=== PATIENT | female | born 1970 | race Caucasian/White ===

== ENCOUNTER → 2021-10-22 09:53 | Outpatient (BNVA) | payer MEDICAID, SELFPAY | PROVIDERS: Family Provider Family Medicine; PCP Nurse Practitioner Family; Visit Provider Nurse Practitioner Family | DX: I10 Essential (primary) hypertension (principal); K21.9 Gastro-esophageal reflux disease without esophagitis; R11.2 Nausea with vomiting, unspecified; R10.11 Right upper quadrant pain | CPT/HCPCS: 80053; 85025 ==

== ENCOUNTER → 2022-01-08 09:45 | Outpatient (BNVA) | payer BC, MEDICAID, SELFPAY | PROVIDERS: Family Provider Family Medicine; PCP Nurse Practitioner Family; Visit Provider Nurse Practitioner Family | DX: E78.5 Hyperlipidemia, unspecified (principal); R73.9 Hyperglycemia, unspecified; I10 Essential (primary) hypertension; Z68.33 Body mass index [BMI] 33.0-33.9, adult; J98.8 Other specified respiratory disorders | CPT/HCPCS: 80053; 80061; 83036; 84443; 85025 ==

== ENCOUNTER 2022-04-14 09:23 | Outpatient (CLI) | payer BC, MEDICAID, SELFPAY ==
--- NOTE | 2022-04-14 | US_ITS ---
WS: [id number] RIGHT UPPER QUADRANT ULTRASOUND HISTORY: R11.2 - Nausea with vomiting, unspecified COMPARISON: None available. Liver: 15.1 cm in length. Normal size liver. No bile duct dilatation or mass. Portal Vein: Normal hepatopetal flow with monophasic waveform. Gallbladder: Normally distended gallbladder with no stones or wall thickening. CBD: 0.4 cm Pancreas: Normal size and echogenicity. Right kidney: 9.8 cm in length. Normal size and echogenicity. No hydronephrosis or mass. Aorta and IVC: Unremarkable abdominal aorta and IVC. No ascites. US/US gall bladder [id number] IMPRESSION: Normal RIGHT upper quadrant ultrasound.
== END 2022-04-14 09:24 | disposition home or self-care (01) ==
LOC: RAD 09:24
PROVIDERS: PCP Nurse Practitioner Family; Visit Provider Nurse Practitioner Family
DX: R11.2 Nausea with vomiting, unspecified (principal)
CPT/HCPCS: 76705

== ENCOUNTER 2022-06-10 08:47 | Outpatient (CLI) | payer BC, MEDICAID, SELFPAY ==
--- NOTE | 2022-06-10 08:54 | MM_ITS ---
WS: [id number] BILATERAL SCREENING DIGITAL TOMOSYNTHESIS MAMMOGRAM WITH CAD HISTORY: Z12.39 - Encounter for other screening for malignant neoplasm... COMPARISON: None available. Bilateral CC and MLO views with tomosynthesis and synthetic mammography submitted. Computer aided det ection analyzed. Breast composition: The breasts are heterogeneously dense, which may obscure small masses. No suspici ous masses, microcalcifications or architectural distortion. Benign calcifications LEFT breast. MM/[place] [id number] IMPRESSION: BI-RADS: 2-Benign FOLLOW UP: 1 Year Follow-up
== END 2022-06-10 08:48 | disposition home or self-care (01) ==
LOC: RAD 08:49
PROVIDERS: PCP Nurse Practitioner Family; Visit Provider Nurse Practitioner Family
DX: Z12.31 Encounter for screening mammogram for malignant neoplasm of breast (principal)
CPT/HCPCS: 77063; 77067

== ENCOUNTER → 2022-06-19 09:08 | Outpatient (BNVA) | payer BC, MEDICAID, SELFPAY | PROVIDERS: PCP Nurse Practitioner Family; Visit Provider Nurse Practitioner Family | DX: E11.9 Type 2 diabetes mellitus without complications (principal); K21.9 Gastro-esophageal reflux disease without esophagitis; F41.9 Anxiety disorder, unspecified; F32.A Depression, unspecified; I10 Essential (primary) hypertension; E78.5 Hyperlipidemia, unspecified; F17.200 Nicotine dependence, unspecified, uncomplicated; J44.9 Chronic obstructive pulmonary disease, unspecified | CPT/HCPCS: 80053; 80061; 83036; 84443; 85025 ==

== ENCOUNTER → 2022-08-05 14:08 | Outpatient (BNVA) | payer BC, MEDICAID, SELFPAY | PROVIDERS: PCP Nurse Practitioner Family; Visit Provider Nurse Practitioner | DX: J02.9 Acute pharyngitis, unspecified (principal) | CPT/HCPCS: 87880 ==

== ENCOUNTER → 2022-10-21 14:59 | Outpatient (BNVA) | payer BC, MEDICAID, SELFPAY | PROVIDERS: PCP Nurse Practitioner Family; Visit Provider Nurse Practitioner Family | DX: E11.9 Type 2 diabetes mellitus without complications (principal) | CPT/HCPCS: 80053; 80061; 83036; 84443; 85025 ==

== ENCOUNTER → 2023-01-05 10:12 | Outpatient (BNVA) | payer BC, MEDICAID, SELFPAY | PROVIDERS: PCP Nurse Practitioner Family; Visit Provider Nurse Practitioner | DX: R50.9 Fever, unspecified (principal); Z20.822 Contact with and (suspected) exposure to COVID-19 | CPT/HCPCS: 87426 ==

== ENCOUNTER → 2023-01-15 10:34 | Outpatient (BNVA) | payer BC, MEDICAID, SELFPAY | PROVIDERS: PCP Nurse Practitioner Family; Visit Provider Nurse Practitioner Family | DX: Z12.11 Encounter for screening for malignant neoplasm of colon (principal); E11.9 Type 2 diabetes mellitus without complications; J44.9 Chronic obstructive pulmonary disease, unspecified; K21.9 Gastro-esophageal reflux disease without esophagitis; F41.9 Anxiety disorder, unspecified; F32.A Depression, unspecified; E78.5 Hyperlipidemia, unspecified; I10 Essential (primary) hypertension | CPT/HCPCS: 80053; 80061; 83036; 84443; 85025 ==

== ENCOUNTER → 2023-04-09 10:26 | Outpatient (BNVA) | payer BC, MEDICAID, SELFPAY | PROVIDERS: PCP Nurse Practitioner Family; Visit Provider Nurse Practitioner Family | DX: E11.9 Type 2 diabetes mellitus without complications (principal) | CPT/HCPCS: 80053; 80061; 83036; 84443; 85025 ==

== ENCOUNTER → 2023-06-17 13:51 | Outpatient (BNVA) | payer BC, MEDICAID, SELFPAY | PROVIDERS: PCP Nurse Practitioner Family; Visit Provider Nurse Practitioner Family | DX: R50.9 Fever, unspecified (principal) | CPT/HCPCS: 87071; 87426; 87880 ==

== ENCOUNTER → 2023-07-13 09:52 | Outpatient (BNVA) | payer BC, MEDICAID, SELFPAY | PROVIDERS: PCP Nurse Practitioner Family; Visit Provider Nurse Practitioner Family | DX: E11.9 Type 2 diabetes mellitus without complications (principal); I10 Essential (primary) hypertension | CPT/HCPCS: 80053; 80061; 83036; 84443; 85025 ==

== ENCOUNTER → 2024-03-14 11:55 | Outpatient (BNVA) | payer BC, MEDICAID, SELFPAY | PROVIDERS: PCP Nurse Practitioner Family; Visit Provider Nurse Practitioner Family | DX: I10 Essential (primary) hypertension (principal); E11.9 Type 2 diabetes mellitus without complications | CPT/HCPCS: 80053; 80061; 83036; 84443; 85025 ==

== ENCOUNTER → 2024-05-30 10:03 | Outpatient (BNVA) | payer BC, MEDICAID, SELFPAY | PROVIDERS: PCP Nurse Practitioner Family; Visit Provider Nurse Practitioner Family | DX: E11.9 Type 2 diabetes mellitus without complications (principal) | CPT/HCPCS: 80053; 80061; 83036; 84443; 85025 ==

== ENCOUNTER 2024-06-27 11:07 | Day surgery (SDC) | payer BC, MEDICAID, SELFPAY ==
[2024-06-27] VITALS (7 sets, daily range): BP systolic 106–145; BP diastolic 69–100; PULSE 64–88; RESP 16–18; TEMP 36.1–36.8; O2SAT 95–100; BMI 27.2
[2024-06-27] MEDS: sodium chloride 0.9% 1,000 ML 30 ML IV (11:27)
[2024-06-27 11:31] LABS: Glucose Point of Care 101 mg/dL (70-110)
[2024-06-27] MEDS: ipratropium-albuterol 3 mL Neb INHALATION (11:51)
--- NOTE | 2024-06-27 12:04 | ANES.PREANE2 ---
Pre-Anesthetic Assessment Height/Weight: Height 1.57 m Weight 67.585 kg Temp Pulse Resp BP Pulse Ox O2 Del Method 98.2 F 88 17 140/70 96 Room Air 06/27/24 11:21 06/27/24 11:58 06/27/24 11:50 06/27/24 11:21 06/27/24 11:50 06/27/24 11:50 Preop Diagnosis: screening Operation Date: 06/27/24 12:15 Proposed Procedures p EGD- 07635,G0121,64146,K21.9,Z12.11(Not Applicable) - Rodrick Ellis MD s Colonoscopy(Not Applicable) - Rodrick Ellis MD Familial anesthetic complications: none Was Beta Radha taken within 24 hours: N/A Was Clonidine taken within 24 hours: N/A Last intake: Intake Last Liquid Date 06/26/24 Last Liquid Time 20:45 Last Solid Date 06/25/24 Last Solid Time 19:00 Social Tobacco 5/6 per day Exam alert, oriented x 3, clear to auscultation bilaterally and regular rate & rhythm Airway Submandibular: within normal limits Cervical ROM: within normal limits Mallampati: Class II Dentition: false Comments: Comments: uppers History/ROS No significant history except as noted and No significant complaints Pulmonary Asthma and Chronic Obstructive Pulmonary Disease SOB with exersion CV/HEM Hypertension None reported Hepatic None reported GI Gastroesophageal Reflux Disease Metabolic Diabetes Mellitus [facility] None reported Neuropsych None reported Anesthetic Plan ASA status: 3 Anesthesia: MAC Risk of > 500 ml blood loss (7ml/kg in children): No Medications/Allergies Home Medications Medication Instructions Recorded Confirmed Last Taken Type nebulizer accessories #1 ea 07/13/23 06/23/24 Unknown Rx varenicline 1 mg tablet (Chantix 1 mg PO BID #56 tabs 11/13/23 06/27/24 06/25/24 Rx Continuing Month Box) compressor, for nebulizer #1 ea 02/23/24 06/23/24 Unknown Rx albuterol sulfate 2.5 mg/3 mL 2.5 mg (3 mL) inhalation Q4H PRN 05/30/24 06/27/24 Unknown Rx (0.083 %) solution for nebulization shortness of breath or wheezing #180 mL atorvastatin 80 mg tablet 80 mg PO DAILY #30 tabs 05/30/24 06/27/24 06/26/24 Rx budesonide-formoterol HFA 80 2 puff inhalation BID #10.2 grams 05/30/24 06/27/24 06/26/24 Rx mcg-4.5 mcg/actuation aerosol inhaler (Symbicort) lisinopril 40 mg tablet 40 mg PO DAILY #30 tabs 05/30/24 06/27/24 06/26/24 Rx pantoprazole 40 mg tablet,delayed 40 mg PO DAILY #30 tabs 05/30/24 06/27/24 06/26/24 Rx release (Protonix) albuterol sulfate 90 mcg/actuation 2 puff inhalation QID PRN 06/23/24 06/27/24 06/26/24 History aerosol inhaler Shortness Of Breath Or Wheezing budesonide 0.5 mg/2 mL suspension 0.5 mg inhalation BID PRN 06/23/24 06/27/24 Unknown History for nebulization (Pulmicort) Shortness Of Breath Or Wheezing triamcinolone acetonide 0.1 % 1 applic topical TID PRN Outbreak 06/23/24 06/27/24 06/23/24 History topical cream Allergies Allergy/AdvReac Type Severity Reaction Status Date / Time No Known Allergies Allergy Unverified 06/10/24 08:32 Current Medications Generic Name Dose Route Start Last Admin Trade Name Freq PRN Reason Stop Dose Admin Sodium Chloride 1,000 mls @ 30 mls/hr 06/27/24 11:15 06/27/24 11:27 Sodium Chloride 0.9% IV 06/28/24 11:14 30 mls/hr .Q24H JENNIFER Administration PFSH Anesthesia Medical History Right wrist tendonitis GERD (gastroesophageal reflux disease) Diabetes type 2, controlled Essential hypertension Hyperlipemia COPD (chronic obstructive pulmonary disease) Surgical History Hx of tubal ligation Family History (Updated 06/10/24 @ 08:35 by MARTINE Tran) Grandfather Cancer Diabetes Stroke Grandmother Clotting disorder Diabetes Hyperlipidemia Hypertension Sister Stroke Family/Other Colon cancer Uncle on father side Family/Other Colon cancer uncle on mother side Denies family history of Dementia Chronic kidney disease (CKD) Suicide Social History Smoking and tobacco/nicotine status: current every day tobacco/nicotine user Second hand smoke exposure: No Alcohol intake: unknown Substance/Drug Use: unknown Adopted: No Caregiver/support person: No Lives independently: Yes Household members: spouse Housing: House Marital status: service: No Current occupational status: employed Current occupation: [employer] Pets and animals: Yes Do you think of yourself as: Straight/Heterosexual Current gender identity: Female Data Anesthesia Cardiac Studies: No Data to Display
--- NOTE | 2024-06-27 12:24 | W.PM.OPSUD ---
Surgery/Procedure H&P Update DATE OF PROCEDURE: June 27, 2024 DATE H&P PERFORMED: 06/10/24 H&P UPDATE INFORMATION: I have reviewed H&P completed within last 30 days, I have examined patient prior to procedure and No changes to prior documentation PREOP DIAGNOSIS: screening PLANNED PROCEDURE: Operation Date: 06/27/24 12:15 Proposed Procedures p EGD- 93092,G0121,12839,K21.9,Z12.11(Not Applicable) - Rodrick Ellis MD s Colonoscopy(Not Applicable) - Rodrick Ellis MD
--- NOTE | 2024-06-27 13:35 | ANE.PACU2 ---
Inpatient post-anesthesia follow up: Airway intact: Yes Vital signs: Temperature 97.0 F Pulse Rate 86 Respiratory Rate 18 Blood Pressure 124/100 Pulse Oximetry 100 Oxygen Delivery Me thod Room Air Oxygen Flow Rate Fraction of Inspir ed Oxygen Hydration adequate: Yes Nausea and vomiting: No Pain level: 1 Mental status: Baseline
== END 2024-06-27 13:35 | disposition home or self-care (01) ==
PROVIDERS: PCP Nurse Practitioner Family; Visit Provider Student in an Organized Health Care Education/Training Program
PROC: 0DJ08ZZ Inspection of Upper Intestinal Tract, Via Natural or Artificial Opening Endoscopic (ICD-10-PCS; CPT 43235; principal; 2024-06-27 12:15)
PROC: 0DJD8ZZ Inspection of Lower Intestinal Tract, Via Natural or Artificial Opening Endoscopic (ICD-10-PCS; CPT 45378; 2024-06-27 12:15)
DX: Z12.11 Encounter for screening for malignant neoplasm of colon (principal); K21.9 Gastro-esophageal reflux disease without esophagitis; K57.30 Diverticulosis of large intestine without perforation or abscess without bleeding; K64.4 Residual hemorrhoidal skin tags; I10 Essential (primary) hypertension; E11.9 Type 2 diabetes mellitus without complications; E78.5 Hyperlipidemia, unspecified; J44.9 Chronic obstructive pulmonary disease, unspecified; F17.200 Nicotine dependence, unspecified, uncomplicated; K29.50 Unspecified chronic gastritis without bleeding
CPT/HCPCS: 36416; 43239; 45378; 82962; 88305; 88342; 94640; J2704; J7030

== ENCOUNTER → 2024-09-05 10:55 | Outpatient (BNVA) | payer BC, MEDICAID, SELFPAY | PROVIDERS: PCP Nurse Practitioner Family; Visit Provider Nurse Practitioner Family | DX: R05.9 Cough, unspecified (principal); R06.2 Wheezing; F17.200 Nicotine dependence, unspecified, uncomplicated; J44.1 Chronic obstructive pulmonary disease with (acute) exacerbation | CPT/HCPCS: 71046 ==

== ENCOUNTER → 2024-12-01 10:46 | Outpatient (BNVA) | payer BC, MEDICAID, SELFPAY | PROVIDERS: PCP Nurse Practitioner Family; Visit Provider Nurse Practitioner Family | DX: I10 Essential (primary) hypertension (principal); E11.9 Type 2 diabetes mellitus without complications; E78.5 Hyperlipidemia, unspecified; K21.9 Gastro-esophageal reflux disease without esophagitis; J44.9 Chronic obstructive pulmonary disease, unspecified; M79.672 Pain in left foot | CPT/HCPCS: 73630; 80053; 80061; 83036; 84443; 85025; 85651; 86140 ==

== ENCOUNTER → 2024-12-15 09:35 | Outpatient (BNVA) | payer BC, MEDICAID, SELFPAY | PROVIDERS: PCP Nurse Practitioner Family; Visit Provider Nurse Practitioner Family | DX: M25.50 Pain in unspecified joint (principal); R70.0 Elevated erythrocyte sedimentation rate; R79.82 Elevated C-reactive protein (CRP) | CPT/HCPCS: 86160; 86162; 86235; 86255; 86376; 86431 ==

== ENCOUNTER 2025-01-11 08:20 | Emergency (ER) | payer BC, MEDICAID, SELFPAY ==
[2025-01-11 08:39] VITALS: BP 119/72; PULSE 70; RESP 20; TEMP 36.8; O2SAT 100
--- NOTE | 2025-01-11 08:52 | US_ITS ---
WS: [id number] RIGHT UPPER QUADRANT ULTRASOUND HISTORY: pain RUQ COMPARISON: 04/14/2022 Liver: 17.6 cm in length. Normal size liver and echogenicity. No bile duct dilatation or mass. Portal Vein: Normal hepatopetal flow with monophasic waveform. Gallbladder: Normally distended gallbladder with no stones or wall thickening. CBD: 0.3 cm Pancreas: Limited visualization. Right kidney: 10.2 cm in length. Normal size and echogenicity. No hydronephrosis or mass. Aorta and IVC: Unremarkable abdominal aorta and IVC. No ascites. US/US abdomen limited [id number] IMPRESSION: Normal right upper quadrant ultrasound.
--- NOTE | 2025-01-11 08:52 | CT_ITS ---
WS: [id number] CT ANGIOGRAPHY chest, abdomen and pelvis, with and without contrast. HISTORY: Left-sided chest pain. TECHNIQUE: Precontrast imaging through the thorax. CT angiogram is performed during IV injection. Reformation images reviewed. All CT scans at [facility] use at least one of these dose optimization techniques: automated exposure control; mA and/or kV adjustment per patient size (includes targeted exams where dose is matched to clinical indication); or iterative reconstruction. CONTRAST: Omnipaque 350; 100 mL IV. DLP: 907.79 mGy.cm COMPARISON: None available. Chest: Mildly ectatic and dilated aorta. Ascending thoracic aorta 3.7 cm. Mild atherosclerotic plaque through the arch. Normal size descending aorta at the level of the elver, 2.3 cm. No dissection. No ulcerated plaque. Pulmonary arteries are also well opacified and there is no pulmonary embolism. Normal size heart. No RIGHT heart strain. No pericardial or pleural effusions. Lungs are hyperexpanded. Scattered micronodules throughout both lungs. No nodule greater than 3 mm. No endobronchial lesions. No mediastinal or hilar adenopathy. Small hiatal hernia. Abdominal aorta: Normal size abdominal aorta. Very mild atherosclerotic plaque. No aneurysm. No ulcerated plaque. Good enhancement of the mesenteric arteries. No thrombus or occlusion identified. Normal renal arteries with normal renal enhancement. KRAIG is patent. Mild atherosclerotic plaque continues into the common iliac arteries and femoral arteries. No aneurysms or occlusion. Arterial imaging through the abdomen and pelvis demonstrates tricuspid regurgitation into the hepatic veins. Size of the liver is mildly prominent. Gallbladder is negative. Normal pancreas and adrenal glands. No renal obstruction. No GI tract obstruction. Small hiatal hernia. No ascites or adenopathy. Urinary bladder is well distended. Uterus is present. No destructive bone lesions. CT/CT ang [facility] [id number] IMPRESSION: 1. No thoracic aortic dissection. 2. Mildly ectatic thoracic aorta with atherosclerotic plaque. No ulcerated arsh que. 3. Mild atherosclerosis abdominal aorta with no occlusions or thrombus. Mesent gregorio arteries are normally enhancing. 4. No ischemic changes in the GI tract. 5. No pulmonary embolism. 6. No ascites or adenopathy. 7. Numerous micronodules throughout both lungs. With history of smoking consid er 6-month chest CT follow-up.
--- NOTE | 2025-01-11 08:56 | ECG_ITS ---
[facility]25[facility]11 Pat Name: Nirmala Alfred Department: Room: Gender: Female Security Escort: : 1970 Requested By: Juan Mahajan Order Number: [id number] Reading MD: Measurements Intervals [place] Rate: 64 P: 70 LA: 173 QRS: 63 QRSD: 85 T: 39 QT: 375 QTc: 388 Interpretive Statements SINUS RHYTHM POSSIBLE LEFT ATRIAL ENLARGEMENT [-0.1mV P-WAVE IN V1/V2] [email or web address] [id number]
--- NOTE | 2025-01-11 08:58 | ED_ITS ---
HPI - Abdominal Pain 2 General: Chief Complaint: Abdominal Pain Stated Complaint: dizzy, pain that radiates to back and chest, weak Time Seen by Provider: 01/11/25 08:46 History of Present Illness: Chief complaint is abdominal pain and back pain. The patient states that she has been having some intermittent more mild episodes for quite some time maybe a year. She states that she had an episode on Thursday. She states then she had another episode that was worse this morning. Her pain is right upper quadrant. She states it wraps like a band around her back. She states it does radiate up a little bit into her chest substernal. No pleurisy. She states she has been dry heaving and feels dizzy. No change in vision. No concerning headache. No black or bloody stools or emesis. No fever. No shortness of breath. No pleurisy. No recent mobility or leg pain or swelling. Related Data Home Medications ?Medication ?Instructions ?Recorded ?Confirmed ibuprofen 200 mg tablet (Advil) 800 mg PO Q6H PRN Feve r Or Pain 01/11/25 01/11/25 Previous Rx's ?Medication ?Instructions ?Recorded nebulizer accessories #1 ea 07/13/23 compressor, for nebulizer #1 ea 02/23/24 albuterol sulfate 2.5 mg/3 mL 2.5 mg (3 mL) inhalation Q4H PRN 05/30/24 (0.083 %) solution for nebulization shortness of breat h or wheezing #180 mL albuterol sulfate 90 mcg/actuation 2 puff inhalation Q ID PRN 12/01/24 aerosol inhaler Shortness Of Breath Or Wheez ing #6.7 grams amlodipine 5 mg tablet 5 mg PO DAILY #30 tabs 12/01 atorvastatin 80 mg tablet 80 mg PO DAILY #30 tabs 11/15 03/10 budesonide-formoterol HFA 80 2 puff inhalation BID #10 .2 grams 12/01/24 mcg-4.5 mcg/actuation aerosol inhaler (Symbicort) lisinopril 40 mg tablet 40 mg PO DAILY #30 tabs 11/15 03/10 pantoprazole 40 mg tablet,delayed 40 mg PO DAILY #30 t abs 12/01/24 release (Protonix) tiotropium bromide 18 mcg capsule 1 cap inhalation WAYNE LY #30 12/01/24 with inhalation device (Spiriva inhalations with HandiHaler) escitalopram oxalate 10 mg tablet 10 mg PO DAILY #30 t abs 12/15/24 (Lexapro) ondansetron 4 mg disintegrating 4 mg PO Q8H PRN nausea and 01/11/25 tablet vomiting 4 days #7 tabs Allergies Allergy/AdvReac Type Severity Reaction Status Date / Time No Known Allergies Allergy Unverified 12/15/24 08:41 PFSH ED 2 PFSH: Medical History Right wrist tendonitis GERD (gastroesophageal reflux disease) Diabetes type 2, controlled Essential hypertension Hyperlipemia COPD (chronic obstructive pulmonary disease) Surgical History Hx of tubal ligation Family History Grandfather Cancer Diabetes Stroke Grandmother Clotting disorder Diabetes Hyperlipidemia Hypertension Sister Stroke Family/Other Colon cancer Uncle on father side Family/Other Colon cancer uncle on mother side Denies family history of Dementia Chronic kidney disease (CKD) Suicide Social History Smoking and tobacco/nicotine status: former use of tobacco/nicotine Second hand smoke exposure: No Alcohol intake: unknown Substance/Drug Use: unknown Adopted: No Caregiver/support person: No Lives independently: Yes Household members: spouse Housing: House Marital status: service: No Current occupational status: employed Current occupation: [employer] Pets and animals: Yes Do you think of yourself as: Straight/Heterosexual Current gender identity: Female Physical Exam 2 Narrative: EXAM NARRATIVE: Patient sitting in bed rapid shallow breathing. She is very anxious. Neck is supple. Conjunctive is normal. Pupils are equal reactive to light. She has intact [id number]. No truncal ataxia. No drift in her arms or legs. No calf tenderness or pitting edema. Lung sounds are mildly diminished but no significant wheezing. Heart regular rhythm. Abdomen soft with right upper quadrant tenderness and mild guarding and positive Carreno's. No CVA tenderness. No vertebral tenderness on her back. Intact motor and sensation in extremities. No rash on exposed areas. Extremities appear warm well-perfused. Speech is normal. Course 2 Vital Signs: Vital signs: Vital Signs Temperature 98.2 F 01/11/25 08:39 Pulse Rate 112 H 01/11/25 11:17 Respiratory Rate 20 H 01/11/25 08:39 Blood Pressure 120/69 01/11/25 11:17 Pulse Oximetry 92 01/11/25 11:17 Oxygen Delivery Me thod Room Air 01/11/25 08:39 MDM - Abdominal Pain Medical Decision Making Patient presents complaining of pain in the right upper quadrant. The pain radiates around the back in a band and some into the chest as well. Differential would include biliary colic, acute cholecystitis, renal colic, appendicitis, PE, referred cardiac ischemia, AAA or dissection, pneumonia, pneumothorax, among many others. Patient is not hypertensive. She has been having intermittent episodes for some time. This all would suggest biliary colic and make AAA or dissection less likely. She denies shortness of breath or hemoptysis or recent mobility or leg pain or swelling or pleurisy to suggest PE and this would be less likely. With the migration of the pain however I recommended getting a CT and ordered CT angio chest and pelvis. Also will get right upper quadrant ultrasound. However 50 mcg of fentanyl IV for pain with patient agreement and Zofran 4 mg IV for nausea. Will get a EKG with the chest pain however this seems to be radicular from the abdomen. Will get a troponin. She has had constant symptoms lasting hours for several days. She states she had the main pain on Thursday but then it got better and then she was having some pain yesterday but not as bad and then this episode this morning was more severe prompting her to come in. She states she does feel dizzy however she is rapid shallow breathing. She states she has been that way since she woke up this morning. She has no focal findings on exam to suggest stroke and denies vision changes and has intact [id number] and no truncal ataxia. With her associated pain symptoms acute stroke would be unlikely cause of her symptoms. I ordered CBC CMP lipase troponin and urinalysis. Liver enzymes mildly elevated. White count was normal. Platelets mildly low. Patient troponin was negative. I discussed with patient doing a delta troponin however she states she has been having symptoms for days and declines. She states that she passed a large amount of gas and the pain went away. She states that the gas seems to build up and then when she passes the gas the pain will go away. CT showed some micro pulmonary nodules which I advised her she needs to follow-up on for cancer screening. There was no evidence of acute cholecystitis or acute significant abnormality on the CT angio of the chest abdomen pelvis or the right upper quadrant ultrasound. Patient is asking for discharge. She states she feels much better. I advised limits of ED evaluation broad differential. Advised her she needs to follow-up on her test results with her doctor. She is wanting to know if she can get a note for work for the rest of the week. I advised to come back if worsening or progressive symptoms. Again patient declines delta troponin after informed discussion and states her symptoms have been going on for days. I will prescribe Zofran and have her continue her ppi and have her follow-up closely with her doctor Lab Data 01/11/25 09:00 01/11/25 09:27 Labs/Radiology: Radiology Impressions Abdomen Ultrasound 01/11/25 08:52 IMPRESSION: Normal right upper quadrant ultrasound. Chest/Abdomen/Pelvis CTA 01/11/25 08:52 IMPRESSION: 1. No thoracic aortic dissection. 2. Mildly ectatic thoracic aorta with atherosclerotic plaque. No ulcerated plaque. 3. Mild atherosclerosis abdominal aorta with no occlusions or thrombus. Mesenteric arteries are normally enhancing. 4. No ischemic changes in the GI tract. 5. No pulmonary embolism. 6. No ascites or adenopathy. 7. Numerous micronodules throughout both lungs. With history of smoking consider 6-month chest CT follow-up. Laboratory Results WBC 3.59 10^3/uL (3.29-11.43) 01/11/25 09:00 RBC 4.81 10^6/uL (3.85-5.65) 01/11/25 09:00 Hgb 13.10 g/dL (11.27-16.99) 01/11/25 09:00 Hct 41.4 % (36-47) 01/11/25 09:00 MCV 86.1 fl (85-98) 01/11/25 09:00 MCH 27.2 pg (27-33) 01/11/25 09:00 MCHC 31.6 g/dL (30-55) 01/11/25 09:00 RDW 15.1 % (12.1-15.1) 01/11/25 09:00 Plt Count 107 10^3/cmm (157-399) L 01/11/25 09:00 MPV 11.2 fL (7.4-10.4) H 01/11/25 09:00 Lymph % (Auto) Not Reportable 01/11/25 09:00 [place] % (Auto) Not Reportable 01/11/25 09:00 Lymph # (Auto) Not Reportable 01/11/25 09:00 [place] # (Auto) Not Reportable 01/11/25 09:00 Total Counted 100 (0-100) 01/11/25 09:00 Atypical Lymphs % 9.0 % (0-5) H 01/11/25 09:00 Absolute Neutrophils 2.5 10^3/cmm (1.4-6.5) 01/11/25 09:00 Segmented Neutrophils 64 % 01/11/25 09:00 Band Neutrophils 7.0 % 01/11/25 09:00 Absolute Lymphocytes 0.8 10^3/cmm (1.2-3.4) L 01/11/25 09:00 Lymphocytes (Manual) 14 % 01/11/25 09:00 Monocytes (Manual) 4.0 % 01/11/25 09:00 Absolute Monocytes 0.1 10^3/cmm (0.1-0.6) 01/11/25 09:00 Eosinophils (Manual) 2 % 01/11/25 09:00 Absolute Eosinophils 0.1 10^3/cmm (0.0-0.7) 01/11/25 09:00 Basophils (Manual) 0.0 % 01/11/25 09:00 Absolute Basophils 0.0 10^3/cmm (0.0-0.2) 01/11/25 09:00 Platelet Estimate Decreased (Normal) L 01/11/25 09:00 Giant Platelets Trace 01/11/25 09:00 Sodium 134 mmol/L (136-145) L 01/11/25 09:27 Potassium 4.5 mmol/L (3.5-5.1) 01/11/25 09:27 Chloride 100 mmol/L (98-107) 01/11/25 09:27 Carbon Dioxide 24 mmol/L (22-29) 01/11/25 09:27 Anion Gap 14.5 (5-19) 01/11/25 09:27 BUN 12 mg/dL (6-20) 01/11/25 09:27 Creatinine 0.9 mg/dL (0.5-0.9) 01/11/25 09:27 GFR Calculation 64.8 mL/min (90-130) L 01/11/25 09:27 Glucose 81 mg/dL (65-115) 01/11/25 09:27 Calculated Osmolality 277 mOsm/kg (285-295) L 01/11/25 09:27 Calcium 8.1 mg/dL (8.5-10.5) L 01/11/25 09:27 Total Bilirubin 0.3 mg/dL (0.15-1.2) 01/11/25 09:27 AST 73 U/L (0-32) H 01/11/25 09:27 ALT 97 U/L (0-33) H 01/11/25 09:27 Alkaline Phosphatase 151 U/L (35-105) H 01/11/25 09:27 Troponin T Baseline 8 ng/L (0-10) 01/11/25 09:27 Total Protein 5.9 g/dL (6.6-8.7) L 01/11/25 09:27 Albumin 3.3 g/dL (3.5-5.2) L 01/11/25 09:27 Globulin 2.6 g/dL (1.3-4.6) 01/11/25 09:27 Lipase 15 U/L (13-60) 01/11/25 09:27 HCG, Qual Negative (Negative) 01/11/25 09:27 Urine Color Yellow (Yellow) 01/11/25 10:19 Urine Appearance Clear (CLEAR) 01/11/25 10:19 Urine pH Not Reportable 01/11/25 10:19 Ur Specific [place] Not Reportable 01/11/25 10:19 Urine Protein Not Reportable 01/11/25 10:19 Urine Glucose (UA) Not Reportable 01/11/25 10:19 Urine Ketones Not Reportable 01/11/25 10:19 Urine Blood Not Reportable 01/11/25 10:19 Urine Nitrate Not Reportable 01/11/25 10:19 Urine Bilirubin Not Reportable 01/11/25 10:19 Urine Urobilinogen Not Reportable 01/11/25 10:19 Ur Leukocyte Esterase Not Reportable 01/11/25 10:19 Urine RBC None /hpf (0-2) 01/11/25 10:19 Urine WBC 0-4 /hpf (0-5) H 01/11/25 10:19 Ur Squamous Epith Cells 10-15 /hpf (0-5) H 01/11/25 10:19 Amorphous Sediment Not Reportable 01/11/25 10:19 Urine Bacteria Trace /hpf (NONE) 01/11/25 10:19 All radiology interpretation(s) finalized by discharge Discharge Plan Discharge Patient Disposition: Home Clinical Impression: Abdominal pain, Acute chest pain Condition: Stable Prescriptions: New ondansetron 4 mg tablet,disintegrating 4 mg PO Q8H PRN (Reason: nausea and vomiting) 4 Days Qty: 7 0RF No Action escitalopram oxalate [Lexapro] 10 mg tablet 10 mg PO DAILY Qty: 30 2RF (DME) nebulizer accessories Kit See Rx Instructions .Route Qty: 1 0RF Rx Instructions: As directed (DME) compressor, for nebulizer Device See Rx Instructions .Route Qty: 1 0RF Rx Instructions: As directed albuterol sulfate 2.5 mg /3 mL (0.083 %) solution for nebulization 2.5 mg inhalation Q4H PRN (Reason: shortness of breath or wheezing) Qty: 180 2RF lisinopril 40 mg tablet 40 mg PO DAILY Qty: 30 5RF Rx Instructions: increase dose amlodipine 5 mg tablet 5 mg PO DAILY Qty: 30 5RF pantoprazole [Protonix] 40 mg tablet,delayed release (DR/EC) 40 mg PO DAILY Qty: 30 2RF atorvastatin 80 mg tablet 80 mg PO DAILY Qty: 30 2RF tiotropium bromide [Spiriva with HandiHaler] 18 mcg capsule, w/inhalation device 1 cap inhalation DAILY Qty: 30 5RF Rx Instructions: puncture 1 cap using device; one dose = 2 inhalations budesonide-formoterol [Symbicort] 80-4.5 mcg/actuation HFA aerosol inhaler 2 puff inhalation BID Qty: 10.2 2RF albuterol sulfate 90 mcg/actuation HFA aerosol inhaler 2 puff inhalation QID PRN (Reason: Shortness Of Breath Or Wheezing) Qty: 6.7 5RF ibuprofen [Advil] 200 mg Tablet 800 mg PO Q6H PRN (Reason: Fever Or Pain) Discharge Orders: Discharge ED (Routine); Ordered 01/11/25 Ordered By: Juan Mahajan Referrals: Tierney Pandey FNP-C [Primary Care Provider, Family Practice] Discharge Diet: Advance as tolerated Patient Instructions: Abdominal Pain (ED), Opioid Safety, Pain Management Activity Restrictions/Additional Instructions: Follow-up on all your test results with your doctor including your labs. Follow-up on your CT result with your doctor and your nodules for cancer screening. Come back if worsening pain, difficulty breathing, any worse or concerns. Avoid fat containing food as this can exacerbate gallbladder problems. Follow-up with your doctor within the next 5 to 7 days Print Language: Indonesian Coding Level of Care Code ED Supervisor [employer]
[2025-01-11 09:08] LABS: Hematocrit 41.4 % (36-47); Mean Corpuscular HGB Conc 31.6 g/dL (30-55); Mean Corpuscular Hemoglobin 27.2 pg (27-33); Mean Corpuscular Volume 86.1 fl (85-98); Mean Platelet Volume 11.2 fL (7.4-10.4); Platelet Count 107 10^3/cmm (157-399); Red Blood Count 4.81 10^6/uL (3.85-5.65); Red Cell Distribution Width 15.1 % (12.1-15.1); White Blood Count 3.59 10^3/uL (3.29-11.43)
[2025-01-11] MEDS: iohexol 350 mg/mL 500 mL Btl (per mL) IV (09:13)
[2025-01-11] MEDS: ondansetron 2 mg/ML SDV 2 mL 4 MG IVP (09:27)
[2025-01-11] MEDS: fentaNYL 50 mcg/mL INJ 2mL IVP (09:27)
[2025-01-11] MEDS: sodium chloride 0.9% 1,000 ML 999 ML IV (09:28)
[2025-01-11 09:41] LABS: Slide Review Slide Review Perform
[2025-01-11 09:42] LABS: Band Neutrophils Absolute 0.3 10^3/cmm (0.0-1.2); Lymphocytes 14 %; Total Cells Counted 100 (0-100)
[2025-01-11 09:43] LABS: Absolute Eosinophils 0.1 10^3/cmm (0.0-0.7); Eosinophils 2 %; Lymphocytes Absolute 0.8 10^3/cmm (1.2-3.4); Monocytes Absolute 0.1 10^3/cmm (0.1-0.6)
[2025-01-11 09:44] LABS: Absolute Neutrophil 2.5 10^3/cmm (1.4-6.5); Platelet Estimate Decreased (Normal)
[2025-01-11 09:45] LABS: Giant Platelets Trace
[2025-01-11 09:46] LABS: Absolute Segmented Neutrophil 2.3 10/cmm (1.6-7.1); Segmented Neutrophils 64 %
[2025-01-11 09:51] LABS: Alanine Aminotransferase 97 U/L (0-33); Albumin Level 3.3 g/dL (3.5-5.2); Alkaline Phosphatase 151 U/L (35-105); Anion Gap 14.5 (5-19); Aspartate Amino Transferase 73 U/L (0-32); Blood Urea Nitrogen 12 mg/dL (6-20); Calcium 8.1 mg/dL (8.5-10.5); Carbon Dioxide 24 mmol/L (22-29); Chloride 100 mmol/L (98-107); Globulin 2.6 g/dL (1.3-4.6); Glomerular Filtration Rate 64.8 mL/min (90-130); Glucose 81 mg/dL (65-115); Lipase 15 U/L (13-60); Osmolality Calculated 277 mOsm/kg (285-295); Potassium 4.5 mmol/L (3.5-5.1); Sodium 134 mmol/L (136-145); Total Bilirubin 0.3 mg/dL (0.15-1.2); Total Protein 5.9 g/dL (6.6-8.7)
[2025-01-11 09:52] LABS: HCG, Serum Qual Negative (Negative)
[2025-01-11 09:54] LABS: Troponin(5th) Baseline 8 ng/L (0-10)
[2025-01-11 10:24] LABS: Add Urine Microscopic? NO
[2025-01-11 11:09] LABS: Bacteria Urine TRACE /hpf; Urine Appearance Clear (CLEAR); Urine Color Yellow (Yellow); WBC Urine 0-4 /hpf (0-5)
[2025-01-11 11:12] LABS: Charge for UA Resulting for Rev
[2025-01-11 11:17] VITALS: BP 120/69; PULSE 112; O2SAT 92
[2025-01-11 12:13] VITALS: BP 116/78; PULSE 73; O2SAT 97
== END 2025-01-11 12:15 | disposition home or self-care (01) ==
PROVIDERS: Emergency Provider Emergency Medicine; PCP Nurse Practitioner Family
DX: R10.11 Right upper quadrant pain (principal); R07.9 Chest pain, unspecified
CPT/HCPCS: 12345; 36415; 71275; 74174; 76705; 80053; 81003; 83690; 84484; 84703; 85007; 85025; 93005; 96374; 96375; 99285; J2405; J3010; J7030

== ENCOUNTER → 2025-02-08 11:05 | Outpatient (BNVA) | payer BC, MEDICAID, SELFPAY | PROVIDERS: PCP Nurse Practitioner Family; Visit Provider Nurse Practitioner Family | DX: I10 Essential (primary) hypertension (principal); R07.9 Chest pain, unspecified | CPT/HCPCS: 80053; 85025 ==

== ENCOUNTER → 2025-02-27 10:50 | Outpatient (BNVA) | payer BC, MEDICAID, SELFPAY | PROVIDERS: PCP Nurse Practitioner Family; Referring Provider Nurse Practitioner Family; Visit Provider Internal Medicine Rheumatology | DX: M25.50 Pain in unspecified joint (principal) | CPT/HCPCS: 36415; 80076; 82306; 82565; 83520; 85025; 85651; 86140; 86200; 86480; 86704; 86803; 87340 ==

== ENCOUNTER → 2025-04-05 09:24 | Outpatient (BNVA) | payer BC, MEDICAID, SELFPAY | PROVIDERS: PCP Nurse Practitioner Family; Visit Provider Nurse Practitioner Family | DX: I10 Essential (primary) hypertension (principal); E11.9 Type 2 diabetes mellitus without complications | CPT/HCPCS: 80053; 80061; 83036; 84443; 85025 ==

== ENCOUNTER → 2025-05-17 10:20 | Outpatient (BNVA) | payer BC, MEDICAID, SELFPAY | PROVIDERS: PCP Nurse Practitioner Family; Visit Provider Nurse Practitioner Family | DX: M25.562 Pain in left knee (principal); S89.92XA Unspecified injury of left lower leg, initial encounter | CPT/HCPCS: 73562 ==

== ENCOUNTER → 2025-06-01 13:44 | Outpatient (BNVA) | payer BC, MEDICAID, SELFPAY | PROVIDERS: PCP Nurse Practitioner Family; Visit Provider Nurse Practitioner Family | DX: R10.11 Right upper quadrant pain (principal); R10.9 Unspecified abdominal pain; N39.0 Urinary tract infection, site not specified | CPT/HCPCS: 80053; 81000; 85025; 87086 ==

== ENCOUNTER → 2025-06-05 10:18 | Outpatient (BNVA) | payer BC, MEDICAID, SELFPAY | PROVIDERS: PCP Nurse Practitioner Family; Visit Provider Internal Medicine | DX: J44.9 Chronic obstructive pulmonary disease, unspecified (principal); T78.40XA Allergy, unspecified, initial encounter | CPT/HCPCS: 36415; 85025; 86003 ==